=== PATIENT | male | born 1975 | race Caucasian/White ===

== ENCOUNTER 2017-12-22 15:29 | Emergency (ER) | payer OTHER ==
[~2017-12-22] VITALS: Ht 188 cm; Wt 83.9 kg
[~2017-12-22 15:29] MED LIST: ASPIRIN81 M2 PO; CELEXA20 MG PO; PRADAXA150 MG PO; PROPAFENONE 22225 MG PO
[2017-12-22] MEDS ORDERED: KEFLEX500 M1 PO (19:19)
[2017-12-22] MEDS ORDERED: HYDROCODONE-AP1 EAC6 PO (19:19)
[2017-12-22] MEDS ORDERED: IBUPROFEN 600600 M1 PO (19:19)
== END 2017-12-22 19:20 | disposition home or self-care (01) ==
LOC: ER 15:29
DX: S61.224A Laceration with foreign body of right ring finger without damage to nail, initial encounter (principal); S61.226A Laceration with foreign body of right little finger without damage to nail, initial encounter; I48.0 Paroxysmal atrial fibrillation; Z79.01 Long term (current) use of anticoagulants; Z87.891 Personal history of nicotine dependence; W30.1XXA Contact with power take-off devices (PTO), initial encounter; Y93.89 Activity, other specified; Y92.89 Other specified places as the place of occurrence of the external cause; Y99.8 Other external cause status

== ENCOUNTER → 2021-04-13 | Outpatient (CLI) | payer BC ==
[~2021-04-13] MED LIST changes: +HYDROCODONE-AP1 EAC6 PO; +IBUPROFEN 600600 M1 PO; +KEFLEX500 M1 PO
== END ==
LOC: SJCVCIMAG 13:10
PROVIDERS: ATTEND Nuclear Medicine Nuclear Cardiology
DX: I87.2 Venous insufficiency (chronic) (peripheral) (principal); I87.301 Chronic venous hypertension (idiopathic) without complications of right lower extremity; M79.89 Other specified soft tissue disorders; Z87.891 Personal history of nicotine dependence; Z79.899 Other long term (current) drug therapy; Z82.49 Family history of ischemic heart disease and other diseases of the circulatory system

== ENCOUNTER → 2021-05-09 | Outpatient (CLI) | payer BC ==
[~2021-05-09] VITALS: Ht 188 cm; Wt 88.5 kg
[~2021-05-09] MED LIST changes: +WELLBUTRIN SR150 MG PO
[2021-05-09 08:33] VITALS: BP 137/87
== END | disposition home or self-care (01) ==
LOC: CATH 08:02
PROVIDERS: ATTEND Nuclear Medicine Nuclear Cardiology
DX: I87.1 Compression of vein (principal); I87.321 Chronic venous hypertension (idiopathic) with inflammation of right lower extremity; R22.41 Localized swelling, mass and lump, right lower limb; M79.604 Pain in right leg; I73.9 Peripheral vascular disease, unspecified; Z98.890 Other specified postprocedural states; Z79.899 Other long term (current) drug therapy